=== PATIENT | female | born 1990 ===

== ENCOUNTER 2016-12-24 14:18 | Emergency (ER) | payer MEDICAID ==
[~2016-12-24] VITALS: Ht 165.1 cm; Wt 100.0 kg
[2016-12-24 14:19] VITALS: BP 135/81; PULSE 77; RESP 12; TEMP 98.2; O2SAT 96
== END 2016-12-24 16:14 | disposition left against medical advice (07) ==
LOC: NED 14:18
DX: O26.90 Pregnancy related conditions, unspecified, unspecified trimester (principal)
CPT/HCPCS: 99281